=== PATIENT | male | born 1975 | race Caucasian/White ===

== ENCOUNTER 2020-03-10 00:07 | Emergency (ER) | payer SELFPAY ==
[2020-03-10] MEDS ORDERED: Lidocaine 1% 10 ML MDV INJECT ONE (02:01)
[2020-03-10] MEDS ORDERED: Diphtheria,Pertussis(Acell),Tetanus Vaccine 0.5 ML Syringe IM ONE (02:02)
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
[2020-03-10] MEDS ORDERED: Cephalexin 500 MG Cap PO ONE (02:53)
== END 2020-03-10 03:13 | disposition home or self-care (01) ==
LOC: JD.ED 00:07
DX: S60.454A Superficial foreign body of right ring finger, initial encounter (principal); F17.210 Nicotine dependence, cigarettes, uncomplicated; Z23 Encounter for immunization; W45.8XXA Other foreign body or object entering through skin, initial encounter
CPT/HCPCS: 64450; 90471; 90715; 99283; A9270; J2001